=== PATIENT | female | born 1985 | race Caucasian/White ===

== ENCOUNTER 2021-09-17 13:56 | Inpatient (IN) ==
--- NOTE | 2021-09-17 14:53 | History & Physical Report ---
Date of Service September 17, 2021 History of Present Illness Primary Care Provider: Lois Garcia Allergies Allergy/AdvReac Type Severity Reaction Status Date / Time No Known Allergies Allergy Verified 09/17/21 13:21 Home Medications Medication Instructions Recorded Confirmed Type prenat.vits,real,afb-[id number] 1 tab PO DAILY 01/30/21 09/17/21 History Patient History Medical History History of chicken pox Surgical History S/P wisdom tooth extraction Family History (Updated 01/30/21 @ 10:23 by Sana Sherwood) Father Prostate cancer Grandmother (Paternal) Uterine cancer Denies family history of Ovarian cancer Breast cancer Colorectal cancer Social History (Updated 01/30/21 @ 10:24 by Sana Sherwood) Smoking Status: Never smoker marital status: marital status details: Jack Rogers (38) [phone] Current Living Situation: Spouse Current Living Situation Comment: lives with spouse, dog, parrot current occupational status: employed current occupation: professor [employer] Results & Data ([facility]) Vital Signs (Past 12 Hours) Vital Signs Pulse BP 09/17/21 14:20 97 H 132/86
--- NOTE | 2021-09-17 14:54 | History & Physical Report ---
Date of Service September 17, 2021 Assessment & Plan (1) Encounter for induction of labor: Plan: 36 yo at GA 39wk4d, MARSHA 09/20/21 by LMP, complicated by AMA, presenting with PROM and admitted for IOL -Admit for labor -FHR Category 1 -Start pitocin for IOL -Offer epidural -Expectant management, anticipate History of Present Illness Chief Complaint: Bloody discharge and cramping Primary Care Provider: Lois Garcia 36 yo at GA 39w5d, complicated by AMA, referred to L&D from O B clinic for fluid leakage and increased cramping. Irregular cramping over past day, notes mucoid vaginal discharge in AM which later progressed to blood-tinged in afternoon. Seen in OB clinic and tested nitrazine+, ferning. Reports LOF- meconium stained, good FM, no VB, irregular mildly painful contractions. 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 Recommendation was to have a post-afua evaluation for a possible small VSD. She has been having weekly NSTs since 36 weeks, all reactive. COVID boosted. OB hx: SABs within 1st week of - November 2019, June 2020 PRODUCT GRADER hx: Last pap 01/29/19 normal, no STIs Menstrual hx: regular ~28 cycles OB Labs: Blood Type O Negative 01/31/21 Antibody Screen NEGATIVE 06/28/21 Hemoglobin 12.3 g/dL (12.0-16.0) 06/28/21 Hematocrit 36.7 % (37-47) L 06/28/21 Mean Corpuscular Volume 91.0 fL (80-100) 01/31/21 Platelet Count 260 K/uL (130-400) 01/31/21 Rubella IgG Antibody Immune (Immune) 01/31/21 Rapid Plasma Reagin Nonreactive (Nonreactive) 01/31/21 Hepatitis B Surface Antigen Neg (Neg) 01/31/21 HIV (1&2) Ab and P24 Ag, 4th Gener Neg (Neg) 01/31/21 Glucose 1 Hour 50 gm Load 134 mg/dl (70-130) H 06/28/21 Maternal Serum Alpha Fetoprotein 40.6 ng/mL 04/04/21 OB Optional Labs: Chlamydia trachomatis RNA NOT DETECTED (NOT DETECTED) 01/31/21 Neisseria gonorrhoeae RNA NOT DETECTED (NOT DETECTED) 01/31/21 Alpha Fetoprotein Triple Screen SEE NOTE 04/04/21 Allergies Allergy/AdvReac Type Severity Reaction Status Date / Time No Known Allergies Allergy Verified 09/17/21 13:21 Home Medications Medication Instructions Recorded Confirmed Type prenat.vits,real,jhh-ksbq-jejfu 1 tab PO DAILY 01/30/21 09/17/21 History Past Med/Surg History Medical History (Updated 09/17/21 @ 15:11 by Ninfa Vallecillo MD) History of chicken pox Surgical History S/P wisdom tooth extraction Family History (Updated 01/30/21 @ 10:23 by Sana Sherwood) Father Prostate cancer Grandmother (Paternal) Uterine cancer Denies family history of Ovarian cancer Breast cancer Colorectal cancer Social History (Updated 01/30/21 @ 10:24 by Sana Sherwood) Smoking Status: Never smoker Hx Alcohol Use: No Hx Substance Use: No Preferred Language: Vietnamese Communication Ability: Effective Skirt Clipper Required: No Beliefs That Will Affect Care: None marital status: marital status details: Jack Rogers (38) [phone] Current Living Situation: Spouse Current Living Situation Comment: lives with spouse, dog, parrot current occupational status: employed current occupation: professor [employer] Other Information That Helps Us Care for You: No Feels Safe at Home: Yes Safety Concerns: Feels Safe At This Time Review of Systems Review of Systems: Denies fevers/chills. Denies dyspnea, cough. Denies chest pain. Denies breast pain or discharge. Denies dysuria. Denies headache. Denies back pain. Physical Exam Physical Exam: General: Alert, oriented, no acute distress Cardiac: Regular rate and rhythm, normal S1, S2. No murmurs appreciated. Respiratory: Clear to auscultation b/l with good air flow entry, symmetric chest rise and fall. No wheezes or crackles. No increased work of breathing or accessory muscle use Abdomen: Gravid, soft, nontender. No guarding or CVA tenderness Skin: No rashes or lesions Extremities: Warm, dry, well-perfused with capillary refill <2s b/l. No lower extremity edema, erythema or swelling. Negative Octavio's sign b/l. Pelvic Exam per Dr. Vallecillo Dilation: 2 cm Effacement: 80% Station: -2 Meconium-stained leakage noted with pelvic exam FHR Baseline: 145 BPM Variability: Moderate Accelerations: Present Decelerations: None Tocometry- irregular Results & Data Results & Data ([facility]) Vital Signs (Past 12 Hours) Vital Signs Pulse BP 09/17/21 14:20 97 H 132/86 Resident Activity Tracking Resident Involvement: Resident Care Provided Care Provided: OB Delivery
[2021-09-17] MEDS ORDERED: OXYTOCIN 30 UNITS/500 ML BAG IV PRN ×2 (15:07)
--- NOTE | 2021-09-17 15:11 | Labor Progress Brief Note ---
Date of Service September 17, 2021 Subjective 36yo at 39w4d with PROM confirmed at office today by SSE. Sent to L&D with no ctx, no VB, leaking mec-stained fluid and feeling good FM. Assessment & Plan (1) PROM (premature rupture of membranes): Plan: Induction to begin with pitocin. Epidural on request. Physical Exam Genitourinary: 80/-2 meconium-stained leakage noted with exam [place] irritable FHT Cat 1 Results & Data ([facility]) Vital Signs (Past 12 Hours) Vital Signs Temp Pulse Resp BP 09/17/21 14:26 98.1 F 18 09/17/21 14:20 97 H 132/86 Coding Level of Care Code None Diagnoses PROM (premature rupture of membranes) O42.90
[2021-09-17 15:31] LABS: Hematocrit (blood only) 37.6 % (37-47); Hemoglobin 12.9 g/dL (12.0-16.0); Mean Corpuscular Hemoglobin 31.2 pg (25-34); Mean Corpuscular Hgb Conc 34.3 g/dL (32-36); Mean Platelet Volume 11.4 fL (7.4-10.4); Platelet Count 143 K/uL (130-400); RDW Coefficient of Variation 12.9 % (11.5-14.5); RDW Standard Deviation 42.8 fL (36.4-46.3); Red Blood Count 4.13 M/uL (4.2-5.4); White Blood Count 8.27 K/uL (4.8-10.8)
[2021-09-17] MEDS: LACTATED RINGER'S 1,000 ML IV PRN ×2 (15:54→18:37)
--- NOTE | 2021-09-17 16:02 | Medical Student H&P ---
Date of Service September 17, 2021 Assessment & Plan Admission and Anticipated Discharge Date Admission Date: September 17, 2021 History of Present Illness Chief Complaint: fluid leakage and cramping Primary Care Provider: Lois Garcia 36-year-old female at 39 5/7 GA based on 1st trimester ultrasound (cons istent with LMP), complicated by AMA, without significant medical history presents to labor and delivery as a referral from OB clinic for fluid leakage and increased cramping. She has been experiencing cramping for 1 day. This morning, she had mucus-like drainage which turned into dark yellow and blood- tinged liquid around noon, filling a pad. At the OB clinic, she tested positive for Nitrazine-flash blue and ferning. She has consistent movements, is leaking a small amount of blood-tinged fluid (no bright red blood), irregular contractions (interval unknown). 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 Recommendation was to have a post- evaluation for a possible small VSD. She has been having weekly NSTs since 36 weeks, all reactive. She is boosted against COVID-19 and has had her seasonal influenza vaccine. OB Labs: Blood Type O Negative 01/31/21 Antibody Screen NEGATIVE 06/28/21 Hemoglobin 12.3 g/dL (12.0-16.0) 06/28/21 Hematocrit 36.7 % (37-47) L 06/28/21 Mean Corpuscular Volume 91.0 fL (80-100) 01/31/21 Platelet Count 260 K/uL (130-400) 01/31/21 Rubella IgG Antibody Immune (Immune) 01/31/21 Rapid Plasma Reagin Nonreactive (Nonreactive) 01/31/21 Hepatitis B Surface Antigen Neg (Neg) 01/31/21 HIV (1&2) Ab and P24 Ag, 4th Gener Neg (Neg) 01/31/21 Glucose 1 Hour 50 gm Load 134 mg/dl (70-130) H 06/28/21 Maternal Serum Alpha Fetoprotein 40.6 ng/mL 04/04/21 OB Optional Labs: Chlamydia trachomatis RNA NOT DETECTED (NOT DETECTED) 01/31/21 Neisseria gonorrhoeae RNA NOT DETECTED (NOT DETECTED) 01/31/21 Alpha Fetoprotein Triple Screen SEE NOTE 04/04/21 Labs Reviewed: cfdna low risk--smp cf/sma negative--smp msafp--negative--smp Allergies Allergy/AdvReac Type Severity Reaction Status Date / Time No Known Allergies Allergy Verified 09/17/21 13:21 Home Medications Medication Instructions Recorded Confirmed Type prenat.vits,real,udy-kvfv-bawrw 1 tab PO DAILY 01/30/21 09/17/21 History Patient History Medical History (Updated 09/17/21 @ 15:11 by Ninfa Vallecillo MD) History of chicken pox Surgical History S/P wisdom tooth extraction Family History (Updated 01/30/21 @ 10:23 by Sana Sherwood) Father Prostate cancer Grandmother (Paternal) Uterine cancer Denies family history of Ovarian cancer Breast cancer Colorectal cancer Social History (Updated 01/30/21 @ 10:24 by Sana Sherwood) Smoking Status: Never smoker Hx Alcohol Use: No Hx Substance Use: No Preferred Language: [place] Islander Communication Ability: Effective Certified Hearing Instrument Dispenser Required: No Beliefs That Will Affect Care: None marital status: marital status details: Jack Rogers (38) [phone] Current Living Situation: Spouse Current Living Situation Comment: lives with spouse, dog, parrot current occupational status: employed current occupation: professor [employer] Other Information That Helps Us Care for You: No Feels Safe at Home: Yes Safety Concerns: Feels Safe At This Time OB History SABs within 1st week of - November 2019 and June 2020 PRODUCT MANAGEMENT MANAGER History LMP 39 4/7 menarche at 8, regular ~28 day cycles, normal flow. Not on control pills at conception. Last pap 01/19/19 WNL. H/o an abnormal pap from 15 years ago (HPV +). No STIs Review of Systems + cramping (2/10 pain) +mild ankle swelling Denies fevers/chills. Denies dyspnea, cough. Denies chest pain. Denies breast pain or discharge. Denies dysuria or incontinence. Denies headache. Denies back pain. Denies calf pain or discomfort. Physical Exam Physical Exam: General: Alert, oriented, no acute distress Cardiac: Regular rate and rhythm, normal S1, S2. No murmurs appreciated. Respiratory: Clear to auscultation b/l with good air flow entry, symmetric chest rise and fall. No wheezes or crackles. No increased work of breathing or accessory muscle use Abdomen: Gravid, soft, nontender. No guarding or CVA tenderness Skin: No rashes or lesions Extremities: Warm, dry, well-perfused with capillary refill <2s b/l. +1 pre- tibial edema. No other extremity edema, erythema or swelling. Negative Cotavio's sign b/l. Pulses strong in b/l lower extremities. Pelvic Exam per Dr. Vallecillo Dilation: 2 cm Effacement: 80% Station: -2 Meconium-stained leakage noted with pelvic exam FHR Baseline: 145 BPM Variability: Moderate Accelerations: Present Decelerations: None Tocometry- irregular Results & Data ([facility]) Vital Signs (Past 12 Hours) Vital Signs Temp Pulse Resp BP 09/17/21 14:26 36.7 C 18 09/17/21 14:20 97 H 132/86
[2021-09-17] MEDS ORDERED: ePHEDrine sulfate 50 MG/ML AMP ONE (18:05)
[2021-09-17] MEDS ORDERED: BUPIVACAINE 0.25% 30 ML VIAL ONE (18:05)
[2021-09-17] MEDS ORDERED: SODIUM CHLORIDE 0.9% INJ 10 ML VIAL ONE (18:05)
[2021-09-17] MEDS ORDERED: fentaNYL 2MCG/ML ROPIVACAINE 1.25MG/ML 100 ML BAG EPI ONE (18:06)
[2021-09-17] MEDS ORDERED: fentaNYL citrate 100 MCG/2 ML VIAL ONE (18:06)
[2021-09-17] MEDS ORDERED: diphenhydrAMINE 50 MG/ML VIAL IV PRN (19:17)
[2021-09-17] MEDS ORDERED: PROMETHAZINE HCL 6.25 MG in SODIUM CHLORIDE 0.9% 50 ML IV PRN (19:17)
[2021-09-17] MEDS ORDERED: ePHEDrine sulfate 50 MG/ML AMP IV PRN (19:17)
[2021-09-17] MEDS ORDERED: NALOXONE HCL 0.4 MG/1 ML VIAL/CARP IV PRN (19:17)
[2021-09-17] MEDS ORDERED: fentaNYL 2MCG/ML ROPIVACAINE 1.25MG/ML 100 ML BAG EPI PRN (19:17)
[2021-09-17] MEDS ORDERED: NALOXONE HCL 1 MG in SODIUM CHLORIDE 0.9% 1000ML 1,000 ML IV PRN (19:17)
[2021-09-17] MEDS ORDERED: ONDANSETRON INJ 2 MG/ML 2 ML VIAL IV PRN (19:17)
[2021-09-17] MEDS ORDERED: NALBUPHINE HCL INJ 10 MG/ML AMP IV PRN (19:17)
--- NOTE | 2021-09-17 19:17 | Anesthesiology Consultation ---
Date of Service September 17, 2021 Assessment & Plan Chart Review Chart Review: Patient NOT seen in Pre Admission Testing and Acceptable Risk for Labor Epidural Consults Requested none ASA ASA2 Proposed Anesthesia Anesthesia Type: Labor Epidural Risk / Benefits Reviewed With: PT / POA / Parent / Guardian, Accepts Plan and Informed Consent Obtained History Height/Weight Height: 5 ft 4 in Weight: 74.389 kg Allergies Allergy/AdvReac Type Severity Reaction Status Date / Time No Known Allergies Allergy Verified 09/17/21 13:21 Medications Home Medications Medication Instructions Recorded Confirmed Last Taken prenat.vits,real,fyn-nzkn-gvkie 1 tab PO DAILY 01/30/21 09/17/21 09/16/21 Active Medications Generic Name Dose Route Start Last Admin Trade Name Freq PRN Reason Stop Dose Admin Oxytocin 30 units in 500 mls @ 5 mls/hr 09/17/21 15:07 09/17/21 17:00 Pitocin IV 09/19/21 15:06 0.3 units/hr .Q24H PRN 5 mls/hr Labor Induction/Augmentation Titration Protocol 0.3 UNITS/HR Lactated Ringer's 1,000 mls @ 125 mls/hr 09/17/21 15:07 09/17/21 18:37 Lr IV 09/19/21 15:06 999 mls/hr .Q8H PRN Administration L&D Protocol Protocol Past Medical History Medical History (Updated 09/17/21 @ 15:11 by Ninfa Vallecillo MD) History of chicken pox Exercise / Class Metabolic Activity II 4-5 Yardwork/Stairs/Walk up hill Past Family History Family History (Updated 01/30/21 @ 10:23 by Sana Sherwood) Father Prostate cancer Grandmother (Paternal) Uterine cancer Denies family history of Ovarian cancer Breast cancer Colorectal cancer Past Surgical History Surgical History S/P wisdom tooth extraction Past Anesthesia History No Hx of Anesthesia Complications and No Family Hx of Anesthesia Complications History of PONV No Hx of PONV and No Hx of Motion Sickness Social History Smoking Status: Never smoker Hx Alcohol Use: No Hx Substance Use: No Physical Exam Vital Signs Last Vital Signs Temp 36.7 C 09/17/21 19:04 Pulse 82 09/17/21 19:14 Resp 18 09/17/21 19:04 BP 134/72 09/17/21 19:14 Pulse Ox 97 09/17/21 19:11 ENMT Mouth: no dentition abnormality Thyromental Distance: > or= 3.5 Finger Breadths Mallampati Class: II Neck normal visual inspection Respiratory normal respiratory effort Auscultation: lungs clear to auscultation bilaterally Cardiovascular Rate/Rhythm: regular rate and regular rhythm Psychiatric Orientation: alert Testing Laboratory Results 09/17/21 15:21
--- NOTE | 2021-09-17 20:24 | Labor Progress Brief Note ---
Date of Service September 17, 2021 Subjective Comfortable with epidural. Continues LOF. Assessment & Plan (1) PROM (premature rupture of membranes): Plan: Induction with pitocin. Epidural in place. Admission and Anticipated Discharge Date Admission Date: September 17, 2021 Physical Exam Genitourinary: /0 LOF mec continues FHT Cat 1 w/ early decels [place] Q2min Results & Data ([facility]) Vital Signs (Past 12 Hours) Vital Signs Temp Pulse Resp BP Pulse Ox 09/17/21 20:21 74 99 09/17/21 20:16 76 99 09/17/21 20:11 79 98 09/17/21 20:08 79 119/62 09/17/21 20:06 78 99 09/17/21 20:01 90 98 09/17/21 20:00 18 09/17/21 19:56 80 99 09/17/21 19:53 90 131/77 09/17/21 19:51 75 97 09/17/21 19:46 80 99 09/17/21 19:41 80 99 09/17/21 19:36 78 98 09/17/21 19:33 80 134/67 09/17/21 19:31 80 97 09/17/21 19:30 81 93 09/17/21 19:28 76 135/76 09/17/21 19:26 77 97 09/17/21 19:24 81 139/76 09/17/21 19:21 82 98 09/17/21 19:18 78 139/68 09/17/21 19:16 96 H 125/76 97 09/17/21 19:14 82 134/72 09/17/21 19:12 82 134/77 09/17/21 19:11 79 97 09/17/21 19:10 82 18 147/77 H 09/17/21 19:08 86 136/71 09/17/21 19:06 83 145/69 H 95 09/17/21 19:04 98.1 F 18 09/17/21 19:01 89 97 09/17/21 18:56 85 96 09/17/21 18:51 84 94 09/17/21 18:48 78 94 09/17/21 18:46 79 97 09/17/21 18:41 78 98 09/17/21 18:36 78 99 09/17/21 18:30 22 09/17/21 18:19 71 140/71 09/17/21 17:16 70 140/69 09/17/21 16:30 98.1 F 09/17/21 16:28 68 129/73 09/17/21 14:26 98.1 F 09/17/21 14:20 97 H 132/86 Coding Level of Care Code None Diagnoses PROM (premature rupture of membranes) O42.90
--- NOTE | 2021-09-17 23:01 | Delivery Summary ---
Vaginal Delivery Summary Date of Service September 17, 2021 Vaginal Delivery Summary DIAGNOSES: 1. Allen intrauterine at 39w4d gestation. 2. PROM, Induction of labor. 3. Group B Streptococcus Neg. PROCEDURE: Spontaneous vaginal delivery and repair of 2nd degree laceration. SURGEON: Ninfa Vallecillo MD. INFORMATICS PHYSICIAN LIAISON: None. ESTIMATED BLOOD LOSS: 250 mL. COMPLICATIONS: None. PLACENTA: Spontaneous and intact with a 3-vessel cord. DISPOSITION: Stable to labor and delivery. DESCRIPTION: The patient pushed well and brought the head to in OA position. The infant's head was allowed to deliver with contraction force and no further active pushing, with the perineum protected during this time. There was no nuchal cord. The right shoulder was anterior. The shoulders and body delivered without any difficulty, and the infant was placed on the maternal abdomen. It was vigorous and moving all extremities, and making respiratory efforts. The cord was doubly clamped by the MD and then cut by the FOB. The placenta delivered spontaneously and was noted to be intact and with a 3VC. The cervix, vagina and perineum were examined and were found to have a second-degree laceration which was repaired with vicryl suture in the usual manner, including a crown suture to rebuild the perineal body. The fundus was firm and lochia minimal immediately after delivery. [facility] Vaginal Delivery Charge Vaginal Delivery Codes: 66990 global code for the antepartum, delivery, and post-
[2021-09-17] MEDS ORDERED: DIPHTHERIA/TETANUS/PERTUSSIS 0.5 ML SYR/VIAL IM ONE (23:09)
[2021-09-17] MEDS ORDERED: oxyCODONE/ACETAMINOPHEN 5mg/325mg TAB PO PRN (23:09)
[2021-09-17] MEDS ORDERED: ACETAMINOPHEN 325 MG TAB PO PRN (23:09)
[2021-09-18] MEDS ORDERED: BENZOCAINE 20% AER SPR 82.5 GM CAN EXT PRN (00:07)
[2021-09-18] MEDS: IBUPROFEN 600 MG TAB PO PRN ×5 (00:29→19:40)
--- NOTE | 2021-09-18 06:25 | Obstetrical Progress Note ---
Date of Service <Yair Rico MD - Last Filed: 09/18/21 06:49> September 18, 2021 Assessment & Plan <Yair Rico MD - Last Filed: 09/18/21 06:49> (1) Vaginal delivery: 36 yo , complicated by AMA, now PPD1 from at 39wk5d with 2nd degree perineal laceration -Continue routine care -Vitals reviewed- HDS, afebrile -Blood type O-, GBS-, Rubella immune -Encourage ambulation, regular diet -Pain control with ibuprofen, acetaminophen PRN -Encourage -Will need Rhogam shot prior to discharge if baby is Rh+ -Hgb 12.9 on admission -F/u in 6 weeks with OB <Ninfa Vallecillo MD - Last Filed: 09/18/21 06:51> (1) Vaginal delivery: Subjective <Yair Rico MD - Last Filed: 09/18/21 06:49> Ambulation: limited ambulation Voiding: no voiding problems Passing Gas:: Yes Diet Tolerance:: regular diet Lochia:: Large Feeding Type:: breast feeding (also bottle feeding with formula) Current Pain Level(1-10): 2 Pt feeling well overall, reports mild soreness around site of laceration but pain relieved with PRN medication. Not ambulating as much, yet to pass BM. difficult due to poor latch, supplementing with formula currently. Review of Systems Denies fevers/chills. Denies dyspnea, cough. Denies chest pain. Denies breast pain or discharge. Denies dysuria. Denies headache. Denies back pain. Physical Exam <Yair Rico MD - Last Filed: 09/18/21 06:49> General: Alert, oriented, no acute distress Cardiac: Regular rate and rhythm, normal S1, S2. No murmurs appreciated. Respiratory: Clear to auscultation b/l with good air flow entry, symmetric chest rise and fall. No wheezes or crackles. No increased work of breathing or accessory muscle use Abdomen: Soft, nontender, nondistended. Fundus firm and palpable at 1 cm below umbilicus. No guarding or rebound. Skin: No rashes or lesions Extremities: Warm, dry, well-perfused with capillary refill <2s b/l. No lower extremity edema, erythema or swelling. Negative Octavio's sign b/l. Results & Data ([facility]) <Yair Rico MD - Last Filed: 09/18/21 06:49> Vital Signs (Past 12 Hours) Vital Signs Temp Pulse Pulse Resp BP BP Pulse Ox 09/18/21 04:30 36.6 C 80 18 128/78 98 09/18/21 01:06 92 H 108/59 L 09/18/21 01:00 36.7 C 18 09/18/21 00:30 18 09/18/21 00:22 90 127/59 L 09/18/21 00:07 90 121/58 L 09/18/21 00:00 18 09/17/21 23:52 77 136/71 09/17/21 23:45 18 09/17/21 23:37 85 118/59 L 09/17/21 23:30 18 09/17/21 23:22 81 132/64 09/17/21 23:15 18 09/17/21 23:07 90 123/75 09/17/21 23:00 18 09/17/21 22:52 90 134/63 09/17/21 22:46 88 97 09/17/21 22:41 121 H 96 09/17/21 22:38 118 H 92 09/17/21 22:37 101 H 154/74 H 09/17/21 22:36 96 H 94 09/17/21 22:31 91 H 96 09/17/21 22:27 116 H 94 09/17/21 22:26 95 H 96 09/17/21 22:24 98 H 133/69 09/17/21 22:21 126 H 96 09/17/21 22:16 119 H 96 09/17/21 22:15 118 H 93 09/17/21 22:11 107 H 91 09/17/21 22:08 111 H 94 09/17/21 22:07 93 H 140/67 09/17/21 22:06 88 97 09/17/21 22:01 88 97 09/17/21 22:00 18 09/17/21 21:56 92 H 95 09/17/21 21:53 85 147/68 H 09/17/21 21:51 85 98 09/17/21 21:46 77 97 09/17/21 21:41 80 94 09/17/21 21:38 81 134/85 09/17/21 21:36 84 95 09/17/21 21:33 80 94 09/17/21 21:31 80 96 09/17/21 21:30 18 09/17/21 21:26 76 96 09/17/21 21:21 36.7 C 75 98 09/17/21 21:16 73 98 09/17/21 21:11 73 96 09/17/21 21:08 71 132/69 09/17/21 21:06 70 96 09/17/21 21:01 72 96 09/17/21 21:00 18 09/17/21 20:56 77 97 09/17/21 20:53 71 127/63 09/17/21 20:51 78 97 09/17/21 20:46 80 97 09/17/21 20:41 77 98 09/17/21 20:39 76 134/66 09/17/21 20:36 77 99 09/17/21 20:31 76 99 09/17/21 20:30 18 09/17/21 20:26 74 98 09/17/21 20:23 75 129/82 09/17/21 20:21 74 99 09/17/21 20:16 76 99 09/17/21 20:11 79 98 09/17/21 20:08 79 119/62 09/17/21 20:06 78 99 09/17/21 20:01 90 98 09/17/21 20:00 18 09/17/21 19:56 80 99 09/17/21 19:53 90 131/77 09/17/21 19:51 75 97 09/17/21 19:46 80 99 09/17/21 19:41 80 99 09/17/21 19:36 78 98 09/17/21 19:33 80 134/67 09/17/21 19:31 80 97 09/17/21 19:30 81 93 09/17/21 19:28 76 135/76 09/17/21 19:26 77 97 09/17/21 19:24 81 139/76 09/17/21 19:21 82 98 09/17/21 19:18 78 139/68 09/17/21 19:16 96 H 125/76 97 09/17/21 19:14 82 134/72 09/17/21 19:12 82 134/77 09/17/21 19:11 79 97 09/17/21 19:10 82 18 147/77 H 09/17/21 19:08 86 136/71 09/17/21 19:06 83 145/69 H 95 09/17/21 19:04 36.7 C 18 09/17/21 19:01 89 97 09/17/21 18:56 85 96 09/17/21 18:51 84 94 09/17/21 18:48 78 94 09/17/21 18:46 79 97 09/17/21 18:41 78 98 09/17/21 18:36 78 99 09/17/21 18:30 22 09/17/21 18:19 71 140/71 <Ninfa Vallecillo MD - Last Filed: 09/18/21 06:51> Co-Signing Physician Notes Resident Physician Supervision Note: I interviewed and examined the patient. Discussed with Dr. Rico and agree with findings and plan as documented in the note. Any exceptions or clarifications are listed here: (none) Documented By: Ninfa Vallecillo MD, FACOG Resident Activity Tracking <Yair Rico MD - Last Filed: 09/18/21 06:49> Resident Involvement: Resident Care Provided Care Provided: OB Delivery
[2021-09-18 07:04] LABS: Hematocrit (blood only) 35.2 % (37-47); Hemoglobin 11.9 g/dL (12.0-16.0); Mean Corpuscular Hemoglobin 30.9 pg (25-34); Mean Corpuscular Hgb Conc 33.8 g/dL (32-36); Mean Corpuscular Volume 91.4 fL (80-100); Mean Platelet Volume 11.3 fL (7.4-10.4); Platelet Count 133 K/uL (130-400); RDW Coefficient of Variation 12.8 % (11.5-14.5); RDW Standard Deviation 42.9 fL (36.4-46.3); Red Blood Count 3.85 M/uL (4.2-5.4); White Blood Count 10.84 K/uL (4.8-10.8)
[2021-09-18] MEDS: PRENATAL VITAMIN 1 TAB PO SCH (09:25)
[2021-09-18] MEDS: DOCUSATE SODIUM 100 MG CAP PO SCH ×2 (09:25→20:47)
--- NOTE | 2021-09-19 05:15 | Obstetrical Progress Note ---
Date of Service <Yair Rico MD - Last Filed: 09/19/21 06:50> September 19, 2021 Assessment & Plan <Yair Rico MD - Last Filed: 09/19/21 06:50> (1) Vaginal delivery: 36 yo now PPD2 from at 39wk5d -Continue routine care, discharge home today -Vitals reviewed- HDS, afebrile -Blood type O-, GBS-, Rubella immune -Encourage ambulation -Pain control with ibuprofen, acetaminophen PRN -Encourage -Hgb 11.9 on 09/18 -F/u in 6 weeks with OB <Tara Fernando MD - Last Filed: 09/19/21 07:21> (1) Vaginal delivery: Subjective <Yair Rico MD - Last Filed: 09/19/21 06:50> Ambulation: ambulating normally Voiding: no voiding problems Passing Gas:: Yes Diet Tolerance:: regular diet Lochia:: Small Feeding Type:: breast feeding (also bottle feeding) Current Pain Level(1-10): 0 Pt doing well overall, no acute complaints or distress. Had tailbone pain yesterday which required oxycodone for relief. Pain improves with medication, currently 4/10. Still having some difficulties with latch during , continuing to supplement with formula. Review of Systems Denies fever/chills. Denies dyspnea, cough. Denies chest pain. Denies breast pain or discharge. Denies dysuria. Denies headache. Denies back pain. Physical Exam <Yair iRco MD - Last Filed: 09/19/21 06:50> General: Alert, oriented, no acute distress Cardiac: Regular rate and rhythm, normal S1, S2. No murmurs appreciated. Respiratory: Clear to auscultation b/l with good air flow entry, symmetric chest rise and fall. No wheezes or crackles. No increased work of breathing or accessory muscle use Abdomen: Soft, nontender, nondistended. Fundus firm and palpable at 2 cm below umbilicus. No guarding or rebound. Skin: No rashes or lesions Extremities: Warm, dry, well-perfused with capillary refill <2s b/l. No lower extremity edema, erythema or swelling. Negative Octavio's sign b/l. Results & Data ([facility]) <Yair Rico MD - Last Filed: 09/19/21 06:50> Vital Signs (Past 12 Hours) Vital Signs Temp Pulse Resp BP Pulse Ox 09/19/21 01:05 36.6 C 78 16 120/71 09/18/21 19:30 37.1 C 85 18 119/83 97 <Tara Fernando MD - Last Filed: 09/19/21 07:21> Co-Signing Physician Notes Resident Physician Supervision Note: I interviewed and examined the patient. Discussed with Dr. Rico and agree with findings and plan as documented in the note. Any exceptions or clarifications are listed here: PP2 s/p . Having some tailbone pain, pt has hx broken coccyx in grad school so suspect flared due to delivery. Pt declines oxycodone, would like to try just ibu/tyl for now. Also discussed ice and donut pillow, pt used one in past so will get one again. VSS, exam benign and wnl. Could not reproduce tailbone pain this AM. Stable for d/c home today Documented By: Tara Fernando MD Resident Activity Tracking <Yair Rico MD - Last Filed: 09/19/21 06:50> Resident Involvement: Resident Care Provided Care Provided: OB Delivery
[2021-09-19] MEDS: IBUPROFEN 600 MG TAB PO PRN (08:06)
[2021-09-19] MEDS: DOCUSATE SODIUM 100 MG CAP PO SCH (08:07)
[2021-09-19] MEDS: PRENATAL VITAMIN 1 TAB PO SCH (08:07)
== END 2021-09-19 14:00 | disposition home or self-care (01) | DRG 807 ==
LOC: OPB 13:56 → 4S1 13:58 → 4S2 09-18 01:13